=== PATIENT | female | born 2000 | race African-American/Black ===

== ENCOUNTER 2024-10-25 14:04 | Emergency (ER) | payer OTHER ==
[~2024-10-25] VITALS: Ht 167.6 cm; Wt 74.8 kg
[2024-10-25 17:55] LABS: BASOPHILS % (AUTO) 0.6 % (0.0-2.0); EOSINOPHILS % (AUTO) 0.2 % (0.0-7.0); HEMATOCRIT 39.8 % (31.2-41.9); HEMOGLOBIN 14.1 g/dL (10.9-14.3); LYMPHOCYTES # (AUTO) 1.6 K/uL (0.8-4.8); MEAN CORPUSCULAR HGB CONC 36 g/dL (32.3-35.6); MEAN CORPUSCULAR VOLUME 84.5 fL (75.5-95.3); MONOCYTES # (AUTO) 0.6 K/uL (0.1-1.30); MONOCYTES % (AUTO) 13.8 % (0.0-11.0); NEUTROPHILS # (AUTO) 2.3 K/uL (1.8-8.9); NEUTROPHILS % (AUTO) 50.4 % (38.5-71.5); PLATELET COUNT (AUTO) 265 K/uL (179-408); RED BLOOD CELL COUNT(AUTO) 4.71 MIL/uL (3.63-4.92); RED CELL DISTRIBUTION WIDTH 13.1 % (12.3-17.7); WHITE BLOOD COUNT (AUTO) 4.6 K/uL (3.8-11.8)
[2024-10-25] MEDS: IV NORMAL SALINE 1000 ML BAG IV ONE (18:09)
[2024-10-25 18:10] LABS: DIFFERENTIAL COMMENT 1
[2024-10-25 18:20] LABS: CALCIUM 8.6 mg/dL (8.5-10.1); CARBON DIOXIDE 23 mmol/L (21-32); CHLORIDE 104 mmol/L (98-107); CREATININE 0.8 mg/dL (0.6-1.3); GLUCOSE 85 mg/dL (74-106); SODIUM SERUM 142 mmol/L (136-145); UREA NITROGEN, BLOOD 13 mg/dL (7-18)
[2024-10-25 18:28] LABS: POTASSIUM 3.9 mmol/L (3.5-5.1)
[2024-10-25 18:29] LABS: ALANINE AMINOTRANSFERASE 21 U/L (14-59); ALBUMIN 4.2 g/dL (3.4-5.0); ALKALINE PHOSPHATASE 75 U/L (50-136); ASPARTATE AMINOTRANSFERASE 31 U/L (15-37); BILIRUBIN,DIRECT 0.1 mg/dL (0.0-0.2); BILIRUBIN,TOTAL 0.3 mg/dL (0.2-1.0); TOTAL PROTEIN, SERUM 8.1 g/dL (6.4-8.2)
[2024-10-25 21:28] VITALS: BP 115/89; O2SAT 99
== END 2024-10-25 21:29 | disposition home or self-care (01) ==
LOC: ER 14:04 → EDSEX 14:04 → ER 21:29
DX: R42 Dizziness and giddiness (principal); R19.7 Diarrhea, unspecified; R06.03 Acute respiratory distress; F12.90 Cannabis use, unspecified, uncomplicated; R10.2 Pelvic and perineal pain; Z87.19 Personal history of other diseases of the digestive system
CPT/HCPCS: 99285; 96360; 71045; 96361; 80076; 80048; 85025; 84484; 84702; 36415; 93005; J7040 ×2; A4606; A4663